=== PATIENT | female | born 1965 | race Caucasian/White ===

== ENCOUNTER 2016-08-30 10:18 | Emergency (ER) | payer MEDICAID ==
[2016-08-30 10:23] VITALS: RESP 18
--- NOTE | 2016-08-30 10:38 | EDPHY ---
H & P Stated Complaint: Bump on R index finger x 22 years;now feels numb x 3 days Time Seen by Provider: 08/30/16 10:28 HPI/ROS: CHIEF COMPLAINT: Finger swelling HISTORY OF PRESENT ILLNESS: The patient is a 51-year-old female who comes to the emergency department complaining of swelling and numbness to the tip of her right index finger. She states that she has had a small cyst there on the flexor tendon for over 20 years but over the last week it has become more painful when she tries to flick her cigarette or play her guitar. Also she has some numbness at the very tip of her finger. No erythema or tenderness. Her primary referred her to a hand surgeon 6 months ago but she states that she has not follow-up. REVIEW OF SYSTEMS: Constitutional: denies: chills, fever, recent illness, recent injury EENTM: denies: blurred vision, double vision, nose congestion Respiratory: denies: cough, shortness of breath Cardiac: denies: chest pain, irregular heart rate, lightheadedness, palpitations Gastrointestinal/Abdominal: denies: abdominal pain, diarrhea, nausea, vomiting, blood streaked stools Genitourinary: denies: dysuria, frequency, hematuria, pain Musculoskeletal: See HPI Skin: denies: lesions, rash, jaundice, bruising Neurological: denies: headache, numbness, paresthesia, tingling, dizziness, weakness Hematologic/Lymphatic: denies: blood clots, easy bleeding, easy bruising Immunologic/allergic: denies: HIV/AIDS, transplant EXAM: GENERAL: Well-appearing, well-nourished and in no acute distress. HEAD: Atraumatic, normocephalic. EYES: Pupils equal round and reactive to light, extraocular movements intact, sclera anicteric, conjunctiva are normal. ENT: TMs normal, nares patent, oropharynx clear without exudates. Moist mucous membranes. NECK: Normal range of motion, supple without lymphadenopathy or JVD. LUNGS: Breath sounds clear to auscultation bilaterally and equal. No wheezes rales or rhonchi. HEART: Regular rate and rhythm without murmurs, rubs or gallops. ABDOMEN: Soft, nontender, normoactive bowel sounds. No guarding, no rebound. No masses appreciated. BACK: No CVA tenderness, no spinal tenderness, step-offs or deformities EXTREMITIES: Mild swelling and tenderness along the flexor tendon just distal to the D IP joint. Not painful to palpate. Normal range of motion and flexion. No trigger finger type movement. No sign of felon type infection or paronychia. No sign of trauma. NEUROLOGICAL: Cranial nerves II through XII grossly intact. Normal speech, normal gait. 5/5 strength, normal movement in all extremities, normal sensation PSYCH: Normal mood, normal affect. SKIN: Warm, dry, normal turgor, no visible rashes or lesions. Source: Patient Exam Limitations: No limitations - Personal History LMP (Females 10-55): Post Menopausal Current Tetanus Diphtheria and Acellular Pertussis (TDAP): Yes Tetanus Vaccine Date: <10 - Medical/Surgical History Hx Asthma: No Hx Chronic Respiratory Disease: No Hx Diabetes: Yes Hx Cardiac Disease: No Hx Renal Disease: Yes Hx Cirrhosis: No Hx Alcoholism: Yes Hx HIV/AIDS: No Hx Splenectomy or Spleen Trauma: No Other PMH: Hep C +, Pancreatitis, CRF, Bipolar, Manic depressive, Multi TBI's. NIddm - Family History Significant Family History: No pertinent family hx - Social History Smoking Status: Current every day smoker Alcohol Use: Sober Drug Use: None Constitutional: Initial Vital Signs Temperature (C) 36.4 C 08/30/16 10:19 Heart Rate 96 08/30/16 10:19 Respiratory Rate 18 08/30/16 10:19 Blood Pressure 100/80 08/30/16 10:19 O2 Sat (%) 98 08/30/16 10:19 O2 Delivery Mode Room Air Allergies/Adverse Reactions: adhesive Allergy (Mild, Verified 08/30/16 10:24) Rash Home Medications: Medication Instructions Recorded Hydroxyzine Pamoate [Vistaril] 50 mg PO 08/30/16 Prazosin HCl [Minipress 1mg (*)] 1 mg PO HS 08/30/16 lamoTRIgine [LamICTAL 100 MG (*)] 200 mg PO 08/30/16 metFORMIN HCL [Glucophage 500 mg 500 mg PO 08/30/16 (*)] Medical Decision Making - Diagnostics Imaging: X-ray: Finger x-ray was obtained. I viewed the images myself on the PACS system. My interpretation of the images is: Negative. The radiologist interpretation is negative. ED Course/Re-evaluation: The patient appears to have a cyst in her tendon that is causing pain. It does not appear infected. There is no mechanism for trauma. I will obtain x-rays to rule out avulsion fracture tuft fracture. We will refer to her to Hand surgery for evaluation and likely repair. She understands and agrees with this plan. 11:40 a.m. we discussed the x-ray results. The patient is relieved. I will have her follow up with Hand surgery. She agrees with this plan. She declines further workup or testing. She will take ibuprofen for pain and declines a prescription. Differential Diagnosis: Partial list of the Differential diagnosis considered include but were not limited to; cyst, trigger finger, felon, paronychia and although unlikely based on the history and physical exam, I also considered crush injury, avulsion fracture, septic joint, arthritis. I discussed these differential diagnoses and the plan with the patient as well as the usual and expected course. The patient understands that the diagnosis is provisional and that in medicine we are not always correct and that further workup is often warranted. Usual and customary warnings were given. All of the patient's questions were answered. The patient was instructed to return to the emergency department should the symptoms at all worsen or return, otherwise to followup with the physician as we discussed. Departure - Departure Disposition: Home, Routine, Self-Care Clinical Impression: Tendon cysts Condition: Fair Instructions: Trigger Finger (ED) Referrals: Reshma Harvey MD [Primary Care Provider] - As per Instructions Jose Boles MD [Medical Doctor] - 2-3 days without fail
--- NOTE | 2016-08-30 10:53 | DX ---
Right Second Finger, Three Views History: Palpable abnormality of second finger for one year. Finger numbness for 2 days. Findings: Soft tissue swelling is seen at the radial margin of the second DIP joint without soft tiss ue calcification. No evidence for adjacent erosion or periarticular erosion or fracture. Severe degen erative change is seen at the first carpometacarpal joint and milder degenerative change at the scaph oid trapezium articulation and first metacarpophalangeal joint. Impression: Soft tissue swelling at radial margin of the second DIP joint without evidence for osseou s erosion or fracture.
[2016-08-30 11:50] VITALS: BP 105/78; PULSE 62; TEMP 98.2; O2SAT 95
== END 2016-08-30 11:49 | disposition home or self-care (01) ==
DX: M67.88 Other specified disorders of synovium and tendon, other site (principal); F17.200 Nicotine dependence, unspecified, uncomplicated; E11.9 Type 2 diabetes mellitus without complications

== ENCOUNTER 2016-12-24 20:40 | Emergency (ER) | payer MEDICAID ==
--- NOTE | 2016-12-24 20:58 | EDPHY ---
H & P Time Seen by Provider: 12/24/16 20:44 HPI/ROS: Chief complaint. Kidney pain HPI. Due to other acute patient's in the emergency department I did not see this patient.Patient was seen by Dr. Cassidy COATES Constitutional. [no fever/chills, no weakness] Eyes. [no problems with vision] ENT. [no sore throat, no nasal drainage] Cardiovascular. [no chest pain] Respiratory. [no shortness of breath, no cough] Abdominal. [no abdominal pain, no nausea/vomiting, no diarrhea] . [no problems urinating] MS. [no calf pain/swelling, no neck/back pain, no joint pain] Skin. [no rash] Lymph. [no swollen glands] Neuro. [no headache, no dizziness, no difficulty walking or with speech] Smoking Status: Current every day smoker Constitutional: Initial Vital Signs Temperature (C) 36.9 C 12/24/16 20:47 Heart Rate 102 H 12/24/16 20:47 Respiratory Rate 18 12/24/16 20:47 Blood Pressure 101/66 12/24/16 20:47 O2 Sat (%) 98 12/24/16 20:47 O2 Delivery Mode Room Air Allergies/Adverse Reactions: adhesive Allergy (Mild, Verified 08/30/16 10:24) Rash Home Medications: Medication Instructions Recorded Hydroxyzine Pamoate [Vistaril] 50 mg PO 08/30/16 Prazosin HCl [Minipress 1mg (*)] 1 mg PO HS 08/30/16 lamoTRIgine [LamICTAL 100 MG (*)] 200 mg PO 08/30/16 metFORMIN HCL [Glucophage 500 mg 500 mg PO 08/30/16 (*)] Medical Decision Making - Data Points Laboratory Results: Laboratory Results 12/24/16 21:21 12/24/16 21:21 12/24/16 12/24/16 12/24/16 22:25 21:21 21:21 WBC RBC Hgb Hct MCV MCH MCHC RDW Plt Count MPV Neut % (Auto) Lymph % (Auto) [place] % (Auto) Eos % (Auto) Baso % (Auto) Nucleat RBC Rel Count Absolute Neuts (auto) Absolute Lymphs (auto) Absolute Monos (auto) Absolute Eos (auto) Absolute Basos (auto) Absolute Nucleated RBC Immature Gran % Immature Gran # Sodium 142 mEq/L mEq/L (134-144) Potassium 4.4 mEq/L mEq/L (3.5-5.2) Chloride 108 mEq/L mEq/L (97-110) Carbon Dioxide 21 mEq/l L mEq/l (22-31) Anion Gap 13 mEq/L mEq/L (8-16) BUN 6 mg/dL L mg/dL (7-23) Creatinine 0.5 mg/dL L mg/dL (0.6-1.0) Estimated GFR > 60 Glucose 171 mg/dL H mg/dL (70-100) Calcium 8.6 mg/dL mg/dL (8.5-10.4) Total Bilirubin 0.4 mg/dL mg/dL (0.1-1.4) Conjugated Bilirubin 0.4 mg/dL mg/dL (0.0-0.5) Unconjugated Bilirubin 0.0 mg/dL mg/dL (0.0-1.1) AST 62 IU/L H IU/L (14-46) ALT 68 IU/L H IU/L (9-52) Alkaline Phosphatase 160 IU/L H IU/L (38-126) Creatine Kinase Total Protein 8.0 g/dL g/dL (6.3-8.2) Albumin 4.1 g/dL g/dL (3.5-5.0) Lipase 110.0 IU/L IU/L (23-300) Beta HCG, Qual NEGATIVE Urine Color YELLOW Urine Appearance HAZY Urine pH 5.0 (5.0-7.5) Ur Specific [place] 1.003 (1.002-1.030) Urine Protein NEGATIVE (NEGATIVE) Urine Ketones NEGATIVE (NEGATIVE) Urine Blood NEGATIVE (NEGATIVE) Urine Nitrate NEGATIVE (NEGATIVE) Urine Bilirubin NEGATIVE (NEGATIVE) Urine Urobilinogen NEGATIVE EU EU (0.2-1.0) Ur Leukocyte Esterase TRACE H (NEGATIVE) Urine RBC 1-3 /hpf /hpf (0-3) Urine WBC 3-5 /hpf H /hpf (0-3) Ur Epithelial Cells 1+ /lpf /lpf (NONE-1+) Urine Bacteria 4+ /hpf H /hpf (NONE SEEN) Urine Mucus TRACE /lpf /lpf (NONE-1+) Urine Glucose 3+ H (NEGATIVE) Ethyl Alcohol 275 mg/dL H mg/dL (0-10) 12/24/16 12/24/16 21:21 21:00 WBC 11.04 10^3/uL H 10^3/uL (3.80-9.50) RBC 4.69 10^6/uL 10^6/uL (4.18-5.33) Hgb 13.3 g/dL g/dL (12.6-16.3) Hct 40.5 % % (38.0-47.0) MCV 86.4 fL fL (81.5-99.8) MCH 28.4 pg pg (27.9-34.1) MCHC 32.8 g/dL g/dL (32.4-36.7) RDW 14.2 % % (11.5-15.2) Plt Count 365 10^3/uL 10^3/uL (150-400) MPV 8.4 fL L fL (8.7-11.7) Neut % (Auto) 52.4 % % (39.3-74.2) Lymph % (Auto) 34.9 % % (15.0-45.0) [place] % (Auto) 9.1 % % (4.5-13.0) Eos % (Auto) 2.1 % % (0.6-7.6) Baso % (Auto) 0.8 % % (0.3-1.7) Nucleat RBC Rel Count 0.0 % % (0.0-0.2) Absolute Neuts (auto) 5.78 10^3/uL 10^3/uL (1.70-6.50) Absolute Lymphs (auto) 3.85 10^3/uL H 10^3/uL (1.00-3.00) Absolute Monos (auto) 1.01 10^3/uL H 10^3/uL (0.30-0.80) Absolute Eos (auto) 0.23 10^3/uL 10^3/uL (0.03-0.40) Absolute Basos (auto) 0.09 10^3/uL 10^3/uL (0.02-0.10) Absolute Nucleated RBC 0.00 10^3/uL 10^3/uL (0-0.01) Immature Gran % 0.7 % % (0.0-1.1) Immature Gran # 0.08 10^3/uL 10^3/uL (0.00-0.10) Sodium Potassium Chloride Carbon Dioxide Anion Gap BUN Creatinine Estimated GFR Glucose Calcium Total Bilirubin Conjugated Bilirubin Unconjugated Bilirubin AST ALT Alkaline Phosphatase Creatine Kinase 63 IU/L IU/L (0-156) Total Protein Albumin Lipase Beta HCG, Qual Urine Color Urine Appearance Urine pH Ur Specific [place] Urine Protein Urine Ketones Urine Blood Urine Nitrate Urine Bilirubin Urine Urobilinogen Ur Leukocyte Esterase Urine RBC Urine WBC Ur Epithelial Cells Urine Bacteria Urine Mucus Urine Glucose Ethyl Alcohol Medications Given: Discontinued Medications Sodium Chloride (Ns) 1,000 mls @ 0 mls/hr IV ONCE ONE PRN Reason: Wide Open Stop: 12/24/16 21:31 Last Admin: 12/24/16 21:30 Dose: 1,000 mls Departure - Departure Condition: Good Referrals: Patient,NotPresent [Unknown] - As per Instructions
[2016-12-24 21:30] LABS: % IMMATURE GRANULYOCYTES 0.7 % (0.0-1.1); ABSOLUTE IMMATURE GRANULOCYTES 0.08 10^3/uL (0.00-0.10); ADD DIFF? NO; ADD MORPH? NO; ADD SCAN? NO; ATYPICAL LYMPHOCYTE FLAG 0 (0-99); FRAGMENT RBC FLAG 0 (0-99); HEMATOCRIT 40.5 % (38.0-47.0); HEMOGLOBIN 13.3 g/dL (12.6-16.3); LEFT SHIFT FLG 20 (0-99); LIPEMIA HEMOLYSIS FLAG 80 (0-99); MEAN CELL HEMOGLOBIN 28.4 pg (27.9-34.1); MEAN CELL HEMOGLOBIN CONCENTR. 32.8 g/dL (32.4-36.7); MEAN CELL VOLUME 86.4 fL (81.5-99.8); MEAN PLATELET VOLUME 8.4 fL (8.7-11.7); PLATELET CLUMPS FLAG 0 (0-99); PLATELET COUNT 365 10^3/uL (150-400); RED BLOOD CELL COUNT 4.69 10^6/uL (4.18-5.33); RED CELL DISTRIBUTION WIDTH 14.2 % (11.5-15.2)
[2016-12-24] MEDS ORDERED: NS 1,000 ML IV ONE (21:30)
[2016-12-24 21:41] LABS: ALANINE AMINOTRANSFERASE 68 IU/L (9-52); ALBUMIN 4.1 g/dL (3.5-5.0); ALKALINE PHOSPHATASE 160 IU/L (38-126); ANION GAP 13 mEq/L (8-16); ASPARTATE AMINOTRANSFERASE 62 IU/L (14-46); BILIRUBIN,TOTAL 0.4 mg/dL (0.1-1.4); BILIRUBIN-CONJUGATED 0.4 mg/dL (0.0-0.5); CALCIUM 8.6 mg/dL (8.5-10.4); CARBON DIOXIDE 21 mEq/l (22-31); CHLORIDE 108 mEq/L (97-110); CREATININE 0.5 mg/dL (0.6-1.0); ETHANOL SERUM 275 mg/dL (0-10); GLOMERULAR FILTRATION RATE > 60; GLUCOSE 171 mg/dL (70-100); POTASSIUM 4.4 mEq/L (3.5-5.2); SODIUM 142 mEq/L (134-144)
--- NOTE | 2016-12-24 22:20 | EDPHY ---
H & P Stated Complaint: Kidney Pain, ETOH Time Seen by Provider: 12/24/16 20:44 HPI/ROS: HPI The patient presents with bilateral flank pain which has been present since yesterday after she brushed her teeth and had an episode of vomiting. She is brought in by ambulance. She describes the pain is dull, constant, worse with standing, moderate in severity. She says she has had similar pain which she thinks comes from her kidneys, however this has lasted longer than usual. She denies any hematuria, dysuria, urgency, hesitancy. She was recently treated for what sounds like a Bartholin's gland cyst. She has been taking Aleve for the pain without much improvement. She was started on insulin 2 weeks ago by her PMD.. REVIEW OF SYSTEMS Constitutional: No fever, no chills. Eyes: No discharge. ENT: No sore throat. Cardiovascular: No chest pain, no palpitations. Respiratory: No cough, no shortness of breath. Gastrointestinal: See HPI Genitourinary: No hematuria. Musculoskeletal: No back pain. Skin: No rashes. Neurological: No headache. PMHx: Diabetes on insulin Soc Hx: Alcohol use PHYSICAL General Appearance: Alert, no distress Eyes: Pupils equal and round no pallor or injection ENT, Mouth: Mucous membranes moist Respiratory: There are no retractions, lungs are clear to auscultation Cardiovascular: Regular rate and rhythm Gastrointestinal: Abdomen is soft and non-tender, no masses, bowel sounds normal Back: No midline tenderness, no flank tenderness Neurological: A&O, moves all extremities Skin: Warm and dry, no rashes Musculoskeletal: Neck is supple non tender Extremities: symmetrical, full range of motion Psychiatric: Patient is oriented X 3, there is no agitation Source: Patient Exam Limitations: No limitations - Personal History LMP (Females 10-55): Unknown Current Tetanus Diphtheria and Acellular Pertussis (TDAP): Yes Tetanus Vaccine Date: <10 - Medical/Surgical History Hx Asthma: No Hx Chronic Respiratory Disease: No Hx Diabetes: Yes Hx Cardiac Disease: No Hx Renal Disease: Yes Hx Cirrhosis: No Hx Alcoholism: Yes Hx HIV/AIDS: No Hx Splenectomy or Spleen Trauma: No Other PMH: Hep C +, Pancreatitis, CRF, Bipolar, Manic depressive, Multi TBI's. NIddm - Social History Smoking Status: Current every day smoker Constitutional: Initial Vital Signs Temperature (C) 36.9 C 12/24/16 20:47 Heart Rate 102 H 12/24/16 20:47 Respiratory Rate 18 12/24/16 20:47 Blood Pressure 101/66 12/24/16 20:47 O2 Sat (%) 98 12/24/16 20:47 O2 Delivery Mode Room Air Allergies/Adverse Reactions: adhesive Allergy (Mild, Verified 08/30/16 10:24) Rash Home Medications: Medication Instructions Recorded Hydroxyzine Pamoate [Vistaril] 50 mg PO 08/30/16 Prazosin HCl [Minipress 1mg (*)] 1 mg PO HS 08/30/16 lamoTRIgine [LamICTAL 100 MG (*)] 200 mg PO 08/30/16 metFORMIN HCL [Glucophage 500 mg 500 mg PO 08/30/16 (*)] levOFLOXACIN [levAQUIN (*)] 750 mg PO DAILY #7 tab 12/24/16 Medical Decision Making Differential Diagnosis: This is a 51-year-old female with chronic alcohol use, history of pancreatitis, diabetes who presents with bilateral flank pain. Differential diagnosis includes pyelonephritis, nephrolithiasis, AAA, musculoskeletal pain. In the emergency room patient was given IV fluids for volume depletion, and her symptoms improved. Labs were checked which did reveal signs of urinary tract infection. I feel she does likely have pyelonephritis. She does not have any vomiting, is not septic appearing, thus I believe is appropriate for outpatient management. I will give her a dose of ceftriaxone here and send her home on Levaquin. I have discussed strict return precautions with her given her comorbid diabetes. - Data Points Laboratory Results: Laboratory Results 12/24/16 21:21 12/24/16 21:21 12/24/16 12/24/16 12/24/16 22:25 21:21 21:21 WBC RBC Hgb Hct MCV MCH MCHC RDW Plt Count MPV Neut % (Auto) Lymph % (Auto) [place] % (Auto) Eos % (Auto) Baso % (Auto) Nucleat RBC Rel Count Absolute Neuts (auto) Absolute Lymphs (auto) Absolute Monos (auto) Absolute Eos (auto) Absolute Basos (auto) Absolute Nucleated RBC Immature Gran % Immature Gran # Sodium 142 mEq/L mEq/L (134-144) Potassium 4.4 mEq/L mEq/L (3.5-5.2) Chloride 108 mEq/L mEq/L (97-110) Carbon Dioxide 21 mEq/l L mEq/l (22-31) Anion Gap 13 mEq/L mEq/L (8-16) BUN 6 mg/dL L mg/dL (7-23) Creatinine 0.5 mg/dL L mg/dL (0.6-1.0) Estimated GFR > 60 Glucose 171 mg/dL H mg/dL (70-100) Calcium 8.6 mg/dL mg/dL (8.5-10.4) Total Bilirubin 0.4 mg/dL mg/dL (0.1-1.4) Conjugated Bilirubin 0.4 mg/dL mg/dL (0.0-0.5) Unconjugated Bilirubin 0.0 mg/dL mg/dL (0.0-1.1) AST 62 IU/L H IU/L (14-46) ALT 68 IU/L H IU/L (9-52) Alkaline Phosphatase 160 IU/L H IU/L (38-126) Creatine Kinase Total Protein 8.0 g/dL g/dL (6.3-8.2) Albumin 4.1 g/dL g/dL (3.5-5.0) Lipase 110.0 IU/L IU/L (23-300) Beta HCG, Qual NEGATIVE Urine Color YELLOW Urine Appearance HAZY Urine pH 5.0 (5.0-7.5) Ur Specific [place] 1.003 (1.002-1.030) Urine Protein NEGATIVE (NEGATIVE) Urine Ketones NEGATIVE (NEGATIVE) Urine Blood NEGATIVE (NEGATIVE) Urine Nitrate NEGATIVE (NEGATIVE) Urine Bilirubin NEGATIVE (NEGATIVE) Urine Urobilinogen NEGATIVE EU EU (0.2-1.0) Ur Leukocyte Esterase TRACE H (NEGATIVE) Urine RBC 1-3 /hpf /hpf (0-3) Urine WBC 3-5 /hpf H /hpf (0-3) Ur Epithelial Cells 1+ /lpf /lpf (NONE-1+) Urine Bacteria 4+ /hpf H /hpf (NONE SEEN) Urine Mucus TRACE /lpf /lpf (NONE-1+) Urine Glucose 3+ H (NEGATIVE) Ethyl Alcohol 275 mg/dL H mg/dL (0-10) 12/24/16 12/24/16 21:21 21:00 WBC 11.04 10^3/uL H 10^3/uL (3.80-9.50) RBC 4.69 10^6/uL 10^6/uL (4.18-5.33) Hgb 13.3 g/dL g/dL (12.6-16.3) Hct 40.5 % % (38.0-47.0) MCV 86.4 fL fL (81.5-99.8) MCH 28.4 pg pg (27.9-34.1) MCHC 32.8 g/dL g/dL (32.4-36.7) RDW 14.2 % % (11.5-15.2) Plt Count 365 10^3/uL 10^3/uL (150-400) MPV 8.4 fL L fL (8.7-11.7) Neut % (Auto) 52.4 % % (39.3-74.2) Lymph % (Auto) 34.9 % % (15.0-45.0) [place] % (Auto) 9.1 % % (4.5-13.0) Eos % (Auto) 2.1 % % (0.6-7.6) Baso % (Auto) 0.8 % % (0.3-1.7) Nucleat RBC Rel Count 0.0 % % (0.0-0.2) Absolute Neuts (auto) 5.78 10^3/uL 10^3/uL (1.70-6.50) Absolute Lymphs (auto) 3.85 10^3/uL H 10^3/uL (1.00-3.00) Absolute Monos (auto) 1.01 10^3/uL H 10^3/uL (0.30-0.80) Absolute Eos (auto) 0.23 10^3/uL 10^3/uL (0.03-0.40) Absolute Basos (auto) 0.09 10^3/uL 10^3/uL (0.02-0.10) Absolute Nucleated RBC 0.00 10^3/uL 10^3/uL (0-0.01) Immature Gran % 0.7 % % (0.0-1.1) Immature Gran # 0.08 10^3/uL 10^3/uL (0.00-0.10) Sodium Potassium Chloride Carbon Dioxide Anion Gap BUN Creatinine Estimated GFR Glucose Calcium Total Bilirubin Conjugated Bilirubin Unconjugated Bilirubin AST ALT Alkaline Phosphatase Creatine Kinase 63 IU/L IU/L (0-156) Total Protein Albumin Lipase Beta HCG, Qual Urine Color Urine Appearance Urine pH Ur Specific [place] Urine Protein Urine Ketones Urine Blood Urine Nitrate Urine Bilirubin Urine Urobilinogen Ur Leukocyte Esterase Urine RBC Urine WBC Ur Epithelial Cells Urine Bacteria Urine Mucus Urine Glucose Ethyl Alcohol Medications Given: Discontinued Medications Sodium Chloride (Ns) 1,000 mls @ 0 mls/hr IV ONCE ONE PRN Reason: Wide Open Stop: 12/24/16 21:31 Last Admin: 12/24/16 21:30 Dose: 1,000 mls Ceftriaxone Sodium/Dextrose (Rocephin 1 Gm (Premix)) 50 mls @ 100 mls/hr IV EDNOW ONE PRN Reason: Protocol Stop: 12/24/16 23:27 Last Admin: 12/24/16 23:01 Dose: 50 mls Departure - Departure Disposition: Home, Routine, Self-Care Clinical Impression: Pyelonephritis, Alcohol intoxication Condition: Good Instructions: Kidney Infection (ED) Additional Instructions: Please take the antibiotics as prescribed. Please avoid hydroxyzine while you are taking it. If you develop any vomiting, fever or feeling worse in any way you must return to the emergency room. Otherwise, please follow-up with Dr. Harvey on Monday. Referrals: Reshma Harvey MD [Primary Care Provider] - As per Instructions Prescriptions: levOFLOXACIN [levAQUIN (*)] 750 mg PO DAILY #7 tab
[2016-12-24 22:34] VITALS: O2SAT 93
[2016-12-24 22:43] LABS: COLOR YELLOW; LEUKOCYTE ESTERASE,URINE TRACE (NEGATIVE); NITRITE,URINE NEGATIVE (NEGATIVE)
[2016-12-24 22:55] LABS: BACTERIA 4+ /hpf (NONE SEEN); MUCUS TRACE /lpf (NONE-1+)
[2016-12-25 00:10] VITALS: BP 129/82; PULSE 101; RESP 18; TEMP 98.2
== END 2016-12-25 00:10 | disposition home or self-care (01) ==
LOC: EDUNIT#
DX: N12 Tubulo-interstitial nephritis, not specified as acute or chronic (principal); F10.129 Alcohol abuse with intoxication, unspecified; E11.9 Type 2 diabetes mellitus without complications; F17.200 Nicotine dependence, unspecified, uncomplicated
CPT/HCPCS: 96365; G0480; J0696

== ENCOUNTER 2017-06-17 12:21 | Emergency (ER) | payer MEDICAID ==
[2017-06-17 12:26] VITALS: BP 115/86; PULSE 102; RESP 18; TEMP 97.5; O2SAT 97
--- NOTE | 2017-06-17 13:25 | EDPHY ---
General Narrative: CHIEF COMPLAINT: Finger cyst HISTORY OF PRESENT ILLNESS: Patient complains of several day history of pain and swelling the right index finger. She describes as a cyst that was smashed and has now swelling. It has become painful. No numbness or tingling. No redness. No fever chills. No difficulty moving the finger other than pain associated with. She reports having a cyst there for years. She was supposed to follow up with hand surgeon for definitive care. She has been diagnosed with ganglion cyst but has not called anyone. No other associated complaints or modifying factors. She has a referral pending to sports medicine that she has not followed up on. ESTABLISHED ORTHOPEDIST: None REVIEW OF SYSTEMS: Ten systems reviewed and are negative unless otherwise noted in the HPI PAST MEDICAL HISTORY: No current medications or diagnoses PAST SURGICAL HISTORY: Tubal ligation, laparotomy for perforated viscus SOCIAL HISTORY: Daily smoker. Frequent alcohol. Occasional marijuana use. FAMILY HISTORY: Noncontributory EXAMINATION General Appearance: Alert, no distress Cardiovascular: Pulses normal throughout. Symmetric radial pulses 2+. Brisk cap refill Neurological: A&O, sensory symmetric, strength symmetric. No wrist drop. Good strength of the interossei the right hand. Skin: Warm and dry, no rash. There is a cystic structure on the right index finger, primarily boulder. This is over the distal phalanx. Consistent with a ganglion cyst with some fluctuance. I do not appreciate any warmth. No drainage. No cellulitis. No evidence of septic joint. Extremities: Tenderness of the right index finger distal phalanx. There is no tenderness of the the IP, PIP or MCP of the right index finger hand. Range of motion is fully intact. Psychiatric: Mood and affect normal DIFFERENTIAL DIAGNOSES: Including but not limited to ganglion cyst, ruptured cyst, abscess, paronychia MDM: 2:25 p.m. Likely ganglion cyst on the distal phalanx of the right index finger. I do not appreciate any evidence of septic joint, cellulitis, tenosynovitis. Full range of motion. No fever. I will obtain an x-ray due to the recent injury. 2:50 p.m. X-ray reveals no evidence of infection or fracture. There is soft tissue swelling. This is consistent with her cystic appearance. Proceed with aspiration of the area. 3:05 p.m. I have administered a digital block. I attempted to aspirate what was initially thought to be a cyst, however I was able to aspirate approximately 10 cc of purulence. This turned out to be an abscess. This is isolated to the distal phalanx and no involvement of the joints. There is no paronychia. No evidence of tenosynovitis or septic joint. She is feeling significantly better after the treatment. I will place her on Bactrim for treatment. Keep the wound covered. Re-evaluation in 48 hours. Follow up with your original hand surgeon referral for definitive care. ED precautions for any worsening symptoms. PROCEDURE: Digital Block Indication: Finger abscess Consent: Verbal Location: Right index finger Anesthesia: Lidocaine 1% plain, 0.25% Marcaine plain, 5mL Description: Base of the finger was prepped. The above was infused without difficulty. Tolerated well. Good anesthesia. Complications: None PROCEDURE: Incision and Drainage Consent: Verbal Location: Right index finger Length: 1 cm Complexity: Simple Anesthesia: Digital block Procedure description: After the area was anesthetize, I used an 18 gauge needle at the highest area of fluctuance. I was able to aspirate 10 mL of purulence. No pulsatile bleeding. Neurovascular intact postprocedure. Tolerated well. Wound dressed in normal sterile fashion. No packing left in place Expressed: 10 mL as of purulent fluid Wound care: Routine as discussed Follow-up: 48 hour wound check. Definitive care with hand surgeon ED Precautions: Worsening pain. Erythema, edema, cyanosis, pallor, paresthesia or anesthesia. - Diagnostics Imaging Results: Imaging Impressions Finger X-Ray 06/17/17 13:25 Impression: 1. Nonspecific soft tissue lesion involving the right second finger distal phalangeal region. 2. No osseous lesion or erosion of the right second finger. 3. Moderate osteoarthritis right first carpometacarpal joint. - History Smoking Status: Current every day smoker - Objective Vital Signs: Initial Vital Signs Temperature (C) 97.5 F 06/17/17 12:22 Heart Rate 102 H 06/17/17 12:22 Respiratory Rate 18 06/17/17 12:22 Blood Pressure 115/86 H 06/17/17 12:22 O2 Sat (%) 97 06/17/17 12:22 O2 Delivery Mode Room Air Allergies/Adverse Reactions: adhesive Allergy (Mild, Verified 06/17/17 12:22) Rash Home Medications: Medication Instructions Recorded Sulfamethox/Tmp 800/160 mg 1 tab PO BID 10 Days tab 06/17/17 [Bactrim Ds] Departure - Departure Disposition: Home, Routine, Self-Care Clinical Impression: Ganglion cyst of finger of right hand, Abscess of finger of right hand Condition: Good Instructions: Ganglion Cysts (ED) Additional Instructions: 1. Keep the wound clean dry and covered 2. Ice and elevate the wound 3. Ibuprofen [id number] as needed every 8 hours 4. Hand surgeon follow-up for definitive care 5. Follow up with primary care physician in 48 hours for wound recheck 6. ED precautions for worsening symptoms, redness, fever, redness of the hand or wrist Referrals: Reshma Harvey MD [Primary Care Provider] - As per Instructions Harry Hill MD [Medical Doctor] - As per Instructions Prescriptions: Sulfamethox/Tmp 800/160 mg [Bactrim Ds] 1 tab PO BID 10 Days tab
== END 2017-06-17 15:22 | disposition home or self-care (01) ==
PROC: 0H9FXZZ Drainage of Right Hand Skin, External Approach (ICD-10-PCS; principal; 2017-06-17)
DX: M67.441 Ganglion, right hand (principal); L02.511 Cutaneous abscess of right hand; F17.200 Nicotine dependence, unspecified, uncomplicated

== ENCOUNTER 2017-10-19 12:07 | Emergency (ER) | payer MEDICAID ==
[2017-10-19 12:15] VITALS: TEMP 97.5
--- NOTE | 2017-10-19 12:32 | EDPHY ---
H & P Smoking Status: Current every day smoker Time Seen by Provider: 10/19/17 12:24 HPI/ROS: CHIEF COMPLAINT: Right index finger pad tenderness HISTORY OF PRESENT ILLNESS: 52-year-old immunocompetent female with prior history of right index finger abscess and felon in the ER complaining of 3 days of similar symptoms, tender. No lymphangitic streaking. No limitations in range of motion. PHYSICAL EXAM (Prior to examination, patient consented to physical exam, hands were washed and my usual and customary physical exam procedures followed) 1) GENERAL: Well-developed, well-nourished, alert and oriented. Appears to be in no acute distress. 2) HEAD: Normocephalic 3) HEENT: sclera anicteric 4) LUNGS: Breathing comfortably. 5) SKIN: Right index finger : Negative kanavel, tenderness to palpation pad finger with a single white lesion on the palmar-lateral aspect.. No paronychia. 6) MUSCULOSKELETAL: Flexor extensor function intact. No pain along the flexor tendon sheath. No fusiform shape. (Carlos Ryan Bri) Constitutional: Initial Vital Signs Temperature (C) 36.4 C 10/19/17 12:12 Heart Rate 96 10/19/17 12:12 Respiratory Rate 18 10/19/17 12:12 Blood Pressure 116/78 10/19/17 12:12 O2 Sat (%) 93 10/19/17 12:12 O2 Delivery Mode Room Air Allergies/Adverse Reactions: adhesive Allergy (Mild, Verified 10/19/17 12:11) Rash Home Medications: Medication Instructions Recorded Cephalexin [Keflex] 500 mg PO TID 10 Days cap 10/19/17 MDM/Departure - MDM Procedures: Procedure: Wound aspiration. . I obtained verbal consent from the patient to drain the abscess who was informed about the possibility of bleeding and pain. 1% plain bupivacaine digital nerve block administered in usual customary fashion achieving anesthesia distally. Area was prepped draped normal sterile fashion. An 18 gauge sterile needle was introduced into the lesion which had come to a head and was a scant amount of purulent discharge. I did not feel comfortable further exploring, deloculating or incising the area at which point the patient started squeezing the area herself and expressed septum like material. Patient requested that I introduce a needle into the joint space which I declined. Areas dressed with sterile dressing by ER staff. (Carlos Ryan) ED Course/Re-evaluation: Doubt infectious tenosynovitis. The patient did have a single lesion which , after digital nerve block, the patient expressed sebum-like material. She requested I introduced needle in the joint space which I declined. I do not think that emergent hand surgery consultation is indicated however I have stressed the importance of hand surgery follow-up and given her this referral information. Starting her on oral Keflex, recommend elevation, given usual and customary finger precautions instructions. She feels comfortable being discharged. Care of patient under supervision of primary Supervising physician Dr Young. (Carlos Ryan) PHYSICIAN DOCUMENTATION: The patient was evaluated and managed by the Physician Water Taxi Operator. My co- signature indicates that I have reviewed this chart and I agree with the findings and plan of care as documented. I am the secondary supervising physician. (Marcelo Young) - Depart Disposition: Home, Routine, Self-Care Clinical Impression: Finger infection Condition: Good Instructions: Cellulitis (ED) Additional Instructions: Return to the ER if you develop redness, swelling, discharge, warmth to the wound, red streaks going up your arm, or any other symptoms that concern you. Prescriptions: Cephalexin [Keflex] 500 mg PO TID 10 Days cap Referrals: Myles Varma MD [Medical Doctor] - 1-2 days without fail
[2017-10-19 13:23] VITALS: BP 98/78; PULSE 102; RESP 20; O2SAT 94
== END 2017-10-19 13:26 | disposition home or self-care (01) ==
PROC: 0H9FXZZ Drainage of Right Hand Skin, External Approach (ICD-10-PCS; principal; 2017-10-19)
DX: L08.9 Local infection of the skin and subcutaneous tissue, unspecified (principal); F17.200 Nicotine dependence, unspecified, uncomplicated

== ENCOUNTER 2017-11-22 11:47 | Emergency (ER) | payer MEDICAID ==
[2017-11-22 12:23] LABS: PLATELET COUNT 252 10^3/uL (150-400)
--- NOTE | 2017-11-22 12:41 | EDPHY ---
General Time Seen by Provider: 11/22/17 12:24 Narrative: CHIEF COMPLAINT: Low sodium, high blood sugar HISTORY OF PRESENT ILLNESS: Possible hyponatremia possible hyperglycemia. The patient has been off all of her diabetic medications since June at her own supervision. Her physician saw her this week and contacted her with reportedly low sodium and high sugar. Her A1c was reportedly greater than 12. Patient states she has no direct complaints from this and has felt no better or worse since stopping her medications in June. She may have some mild urinary complaints over the past few days. No chest pain. No shortness of breath or cough. No abdominal pain. Patient says that she has been off all medications but resumed her Lamictal and Vistaril yesterday because she was feeling anxious. No other associated complaints or modifying factors. REVIEW OF SYSTEMS: Ten systems reviewed and are negative unless otherwise noted in the HPI PCP: Dr. Reshma Harvey SPECIALISTS: None PAST MEDICAL HISTORY: Diabetes mellitus, hep C positive, pancreatitis, agoraphobia, anxiety, bipolar PAST SURGICAL HISTORY: No recent surgeries SOCIAL HISTORY: Smokes cigarettes daily. Drinks 3-5 beers daily. Currently applied for disability FAMILY HISTORY: Noncontributory EXAMINATION General Appearance: Alert, no distress Head: normocephalic, atraumatic Eyes: Pupils equal and round, no conjunctival pallor or injection ENT, Mouth: Mucous membranes moist. Uvula midline. Airway widely patent Neck: Normal inspection, supple, non-tender Respiratory: Lungs are clear to auscultation. No wheeze, rhonchi or crackles Cardiovascular: Regular rate and rhythm. No murmur. Gastrointestinal: Abdomen is soft and nontender Back: non-tender, no bony abnormalities Neurological: GCS 15. A&O, nonfocal, normal gait. No tremor. Patellar reflexes symmetric. No footdrop. Decreased but symmetric sensation of the anterior shins bilaterally. Skin: Warm and dry, no rash. No petechiae or purpura. Extremities: Nontender, no pedal edema. Symmetric range of motion. Psychiatric: Mood and affect normal DIFFERENTIAL DIAGNOSES: Including but not limited to DKA, HHS, hypoglycemia, hyponatremia, pseudohyponatremia, pneumonia, UTI MDM: 12:40 p.m. Reportedly low sodium and high sugar with poorly controlled A1c. The patient has no specific system complaints. Her vital signs are intermittently tachycardic but also within normal limits at times during my examination. Laboratory studies were drawn prior to my examination and are pending. There was no blood sugar drawn. 1:10 p.m. Chemistry reveals a normal sodium level of 137. CBC is mildly elevated leukocytosis. LFTs are elevated but apparently baseline. She also has hepatitis-C. Urinalysis is pending. Chest x-ray is negative for pneumonia. There are chronic changes as noted I have discussed this with her. I have re- evaluated the patient and informed her that I have ordered IV fluid. Her CO2 is minimally low, she is a chronic hyperglycemic. I do not feel she is in and HHS state. There is no evidence of DKA by history or exam and lack of insulin use. I discussed with Dr. Rogers and he agrees with this plan thus far. I will discuss with her primary care physician, who sent her to this facility for evaluation. 1:50 p.m. Urine is positive for glucose but no infection. 2:15 p.m. I discussed the case with SANDRA Jara, at the office of Dr. Harvey. We discussed the patient's earlier laboratory studies this week. She informed me her sodium was 128 on Monday. I updated her on the laboratory studies here which included normal sodium 137, elevated blood glucose of 362. We discussed that I recommended IV fluid and insulin treatment here, as well as resumption of her previous medications. The patient declined anything but the IV fluid. She would like to be discharged home. She is awake alert no acute distress. I do not appreciate DKA or HHS. I did discuss her elevated liver enzymes. She is hep C positive and continues to drink and I discouraged this. I do strongly recommend that she follow up with her primary care physician and she informs that she will do so, and she has a plan for insulin pump placement. We discussed ED precautions and she is comfortable this plan and discharged home. SUPERVISION: Patient was independently examined, but I discussed the case with my secondary supervising physician Dr. Rogers - Diagnostics Imaging Results: Imaging Impressions Chest X-Ray 11/22/17 12:38 Impression: Normal. No pneumonia. - History Smoking Status: Current every day smoker - Objective Vital Signs: Initial Vital Signs Temperature (C) 98.1 F 11/22/17 11:50 Heart Rate 116 H 11/22/17 11:50 Respiratory Rate 20 11/22/17 11:50 Blood Pressure 103/90 H 11/22/17 11:50 O2 Sat (%) 96 11/22/17 11:50 O2 Delivery Mode Room Air Allergies/Adverse Reactions: adhesive Allergy (Mild, Verified 11/22/17 11:49) Rash Home Medications: Medication Instructions Recorded LaMICtal 11/22/17 Vistaril 11/22/17 Laboratory Results: Laboratory Results 11/22/17 12:14 11/22/17 12:14 11/22/17 11/22/17 11/22/17 13:10 12:14 12:14 WBC RBC Hgb Hct MCV MCH MCHC RDW Plt Count MPV Neut % (Auto) Lymph % (Auto) [place] % (Auto) Eos % (Auto) Baso % (Auto) Nucleat RBC Rel Count Absolute Neuts (auto) Absolute Lymphs (auto) Absolute Monos (auto) Absolute Eos (auto) Absolute Basos (auto) Absolute Nucleated RBC Immature Gran % Immature Gran # Sodium 137 mEq/L mEq/L (135-145) Potassium 4.5 mEq/L mEq/L (3.5-5.2) Chloride 101 mEq/L mEq/L (97-110) Carbon Dioxide 20 mEq/l L mEq/l (22-31) Anion Gap 16 mEq/L mEq/L (8-16) BUN 10 mg/dL mg/dL (7-23) Creatinine 0.5 mg/dL L mg/dL (0.6-1.0) Estimated GFR > 60 Glucose 362 mg/dL H mg/dL (70-100) Calcium 8.9 mg/dL mg/dL (8.5-10.4) Total Bilirubin 0.5 mg/dL mg/dL (0.1-1.4) Conjugated Bilirubin 0.4 mg/dL mg/dL (0.0-0.5) Unconjugated Bilirubin 0.1 mg/dL mg/dL (0.0-1.1) AST 190 IU/L H IU/L (14-46) ALT 179 IU/L H IU/L (9-52) Alkaline Phosphatase 164 IU/L H IU/L (38-126) Total Protein 8.1 g/dL g/dL (6.3-8.2) Albumin 4.3 g/dL g/dL (3.5-5.0) Lipase 143 IU/L IU/L (23-300) Beta-Hydroxybutyrate 0.20 mmol/L mmol/L (0.02-0.27) Urine Color YELLOW Urine Appearance CLEAR Urine pH 6.0 (5.0-7.5) Ur Specific [place]ully 1.023 (1.002-1.030) Urine Protein NEGATIVE (NEGATIVE) Urine Ketones NEGATIVE (NEGATIVE) Urine Blood NEGATIVE (NEGATIVE) Urine Nitrate NEGATIVE (NEGATIVE) Urine Bilirubin NEGATIVE (NEGATIVE) Urine Urobilinogen NEGATIVE EU EU (0.2-1.0) Ur Leukocyte Esterase NEGATIVE (NEGATIVE) Urine RBC NONE SEEN /hpf /hpf (0-3) Urine WBC 1-3 /hpf /hpf (0-3) Ur Epithelial Cells TRACE /lpf /lpf (NONE-1+) Urine Glucose 3+ H (NEGATIVE) 11/22/17 12:14 WBC 12.38 10^3/uL H 10^3/uL (3.80-9.50) RBC 4.81 10^6/uL 10^6/uL (4.18-5.33) Hgb 14.9 g/dL g/dL (12.6-16.3) Hct 43.4 % % (38.0-47.0) MCV 90.2 fL fL (81.5-99.8) MCH 31.0 pg pg (27.9-34.1) MCHC 34.3 g/dL g/dL (32.4-36.7) RDW 12.6 % % (11.5-15.2) Plt Count 252 10^3/uL 10^3/uL (150-400) MPV 9.5 fL fL (8.7-11.7) Neut % (Auto) 59.0 % % (39.3-74.2) Lymph % (Auto) 30.6 % % (15.0-45.0) [place] % (Auto) 8.3 % % (4.5-13.0) Eos % (Auto) 1.0 % % (0.6-7.6) Baso % (Auto) 0.7 % % (0.3-1.7) Nucleat RBC Rel Count 0.0 % % (0.0-0.2) Absolute Neuts (auto) 7.30 10^3/uL H 10^3/uL (1.70-6.50) Absolute Lymphs (auto) 3.79 10^3/uL H 10^3/uL (1.00-3.00) Absolute Monos (auto) 1.03 10^3/uL H 10^3/uL (0.30-0.80) Absolute Eos (auto) 0.12 10^3/uL 10^3/uL (0.03-0.40) Absolute Basos (auto) 0.09 10^3/uL 10^3/uL (0.02-0.10) Absolute Nucleated RBC 0.00 10^3/uL 10^3/uL (0-0.01) Immature Gran % 0.4 % % (0.0-1.1) Immature Gran # 0.05 10^3/uL 10^3/uL (0.00-0.10) Sodium Potassium Chloride Carbon Dioxide Anion Gap BUN Creatinine Estimated GFR Glucose Calcium Total Bilirubin Conjugated Bilirubin Unconjugated Bilirubin AST ALT Alkaline Phosphatase Total Protein Albumin Lipase Beta-Hydroxybutyrate Urine Color Urine Appearance Urine pH Ur Specific Gully Urine Protein Urine Ketones Urine Blood Urine Nitrate Urine Bilirubin Urine Urobilinogen Ur Leukocyte Esterase Urine RBC Urine WBC Ur Epithelial Cells Urine Glucose Medications Given: Discontinued Medications Sodium Chloride (Ns) 1,000 mls @ 0 mls/hr IV EDNOW ONE; Wide Open PRN Reason: Protocol Stop: 11/22/17 13:08 Last Admin: 11/22/17 13:12 Dose: 1,000 mls Departure - Departure Disposition: Home, Routine, Self-Care Clinical Impression: Hyperglycemia, Transaminitis Condition: Good Instructions: Diabetic Hyperglycemia (ED) Additional Instructions: 1. Contact your primary care physician for outpatient follow-up 2. We strongly recommend that you resume your insulin and metformin as prescribed by her primary care physician 3. Return to emergency department for any neuro complaints as discussed Referrals: Reshma Harvey MD [Primary Care Provider] - As per Instructions
[2017-11-22] MEDS ORDERED: NS 1,000 ML IV ONE (13:07)
[2017-11-22 14:31] VITALS: BP 96/73
== END 2017-11-22 14:40 | disposition home or self-care (01) ==
DX: E11.65 Type 2 diabetes mellitus with hyperglycemia (principal); R74.0 Nonspecific elevation of levels of transaminase and lactic acid dehydrogenase [LDH]; E86.9 Volume depletion, unspecified; F17.210 Nicotine dependence, cigarettes, uncomplicated

== ENCOUNTER 2018-08-08 15:39 | Observation (INO) | payer MEDICAID ==
--- NOTE | 2018-08-08 15:54 | EDPHY ---
H & P Stated Complaint: [facility] fall, R hip pain Time Seen by Provider: 08/08/18 15:40 HPI/ROS: CHIEF COMPLAINT: Seizure, right hip pain HISTORY OF PRESENT ILLNESS: The patient presents to the ED after a assumed seizure at home which resulted in a fall. The patient is complaining of some right hip pain. The patient denies any acute numbness or weakness. The patient did strike her head but denies any complaints of headache. She is not anti coag abated. She reports she seizure approximately every 2-3 months. The patient reports that she is not interested in taking antiseizure medications. The patient denies any acute abdominal pain. She denies antecedent chest pain or palpitations. REVIEW OF SYSTEMS: A comprehensive 10 point review of systems is otherwise negative aside from elements mentioned in the history of present illness. Source: Patient Exam Limitations: No limitations - Personal History Tetanus Vaccine Date: <10 - Medical/Surgical History Hx Asthma: No Hx Chronic Respiratory Disease: Yes Hx Diabetes: Yes Hx Cardiac Disease: No Hx Renal Disease: Yes Hx Cirrhosis: No Hx Alcoholism: Yes Hx HIV/AIDS: No Hx Splenectomy or Spleen Trauma: No Other PMH: Hep C +, Pancreatitis, CRF, Bipolar, Manic depressive, Multi TBI's, DM 2. NIddm - Social History Smoking Status: Current every day smoker - Physical Exam Exam: General Appearance: Alert, no distress Head: Atraumatic superficial abrasion noted to scalp, no hematoma, no palpable crepitus Eyes: Pupils equal, round, reactive ENT, Mouth: No hemotympanum, no oral trauma Neck: Nontender, trachea midline Respiratory: No chest wall tender, no subcutaneous air, lungs clear bilaterally Cardiovascular: Regular rate and rhythm Abdomen: Abdomen is soft and nontender, tenderness to palpation over the right hip Skin: No lacerations, No abrasion Back: No midline T/L/S pain Extremities: Tenderness to palpation over right hip, decreased range of motion right hip secondary to pain Neurological: A&Ox3, normal motor function, normal sensory exam Constitutional: Initial Vital Signs Temperature (C) 36.8 C 08/08/18 15:41 Heart Rate 98 08/08/18 15:41 Respiratory Rate 18 08/08/18 15:41 Blood Pressure 136/90 H 08/08/18 15:41 O2 Sat (%) 95 08/08/18 15:41 O2 Delivery Mode Room Air Allergies/Adverse Reactions: adhesive Allergy (Mild, Verified 08/08/18 17:32) Rash Home Medications: Medication Instructions Recorded Aspirin EC [Aspirin EC 81 mg (*)] 81 mg PO HS 08/08/18 Hydroxyzine Pamoate [Vistaril] 50 mg PO TID PRN 08/08/18 [place] Carbonate [[place] 600 mg PO HS 08/08/18 Carbonate Tab 300 mg (*)] lamoTRIgine [LamICTAL 100 MG (*)] 200 mg PO HS 08/08/18 metFORMIN HCL [Metformin HCl ER] 1,000 mg PO DAILY PRN 08/08/18 Medical Decision Making - Diagnostics Imaging Results: Imaging Impressions Hip X-Ray 08/08/18 15:50 Impression: Obliquely oriented intertrochanteric proximal right femoral fracture , with slight superior displacement of the greater trochanteric fracture fragment. The fracture may be incomplete, as the medial cortex and lesser trochanter appear to remain intact. As clinically directed, noncontrast CT examination may be of benefit in further evaluation of the extent of fracture. Chest X-Ray 08/08/18 16:33 Impression: 1. No evidence for acute cardiopulmonary abnormality. 2. Questionable subcentimeter pulmonary nodule in the right upper lobe. Consider follow-up chest x-ray in one month. Extremity CT 08/08/18 16:44 Impression: Mildly displaced right greater trochanteric fracture, as above. Results called and discussed with Dr. Marcelo Young on 08/08/2018, 17:57. ED Course/Re-evaluation: The patient presents to the ED after mechanical fall which resulted in right hip pain. The patient has follow occurred at 3:00 a.m. In the morning. She has been unable to ambulate since that time. The patient presents to the ED with complains only of acute right hip pain. She denies any headache. She did sustain a superficial contusion to her forehead. She is not anticoagulated. X-rays of the right hip demonstrate a minimally displaced partial right intertrochanteric femur fracture. The patient had an IV established. Consultation with Dr. Jose Luke from Orthopedic surgery with occurred at 5:00 p.m.. In reviewing the patient's plain film I was somewhat concerned about the possibility of an artifact. I did obtain a CT scan of the extremity which demonstrates a fracture only through the greater trochanter and not through the intertrochanteric process. The patient was seen in consultation by Orthopedic surgery she has a non operative fracture. She will require PT and OT. The patient will continue to be admitted by the hospitalist service this evening. Differential Diagnosis: Differential diagnosis considered includes hip fracture, hip dislocation, pelvic fracture, myofascial strain, pelvic hematoma - Data Points Laboratory Results: Laboratory Results 08/08/18 16:40 08/08/18 16:40 08/08/18 08/08/18 08/08/18 16:40 16:40 16:40 WBC 6.85 10^3/uL 10^3/uL (3.80-9.50) RBC 3.82 10^6/uL L 10^6/uL (4.18-5.33) Hgb 12.1 g/dL L g/dL (12.6-16.3) Hct 35.1 % L % (38.0-47.0) MCV 91.9 fL fL (81.5-99.8) MCH 31.7 pg pg (27.9-34.1) MCHC 34.5 g/dL g/dL (32.4-36.7) RDW 12.4 % % (11.5-15.2) Plt Count 121 10^3/uL L 10^3/uL (150-400) MPV 10.5 fL fL (8.7-11.7) Neut % (Auto) 66.7 % % (39.3-74.2) Lymph % (Auto) 22.0 % % (15.0-45.0) [place] % (Auto) 9.8 % % (4.5-13.0) Eos % (Auto) 0.6 % % (0.6-7.6) Baso % (Auto) 0.6 % % (0.3-1.7) Nucleat RBC Rel Count 0.0 % % (0.0-0.2) Absolute Neuts (auto) 4.57 10^3/uL 10^3/uL (1.70-6.50) Absolute Lymphs (auto) 1.51 10^3/uL 10^3/uL (1.00-3.00) Absolute Monos (auto) 0.67 10^3/uL 10^3/uL (0.30-0.80) Absolute Eos (auto) 0.04 10^3/uL 10^3/uL (0.03-0.40) Absolute Basos (auto) 0.04 10^3/uL 10^3/uL (0.02-0.10) Absolute Nucleated RBC 0.00 10^3/uL 10^3/uL (0-0.01) Immature Gran % 0.3 % % (0.0-1.1) Immature Gran # 0.02 10^3/uL 10^3/uL (0.00-0.10) PT 12.9 SEC SEC (12.0-15.0) INR 0.95 (0.83-1.16) APTT 29.2 SEC SEC (23.0-38.0) Sodium REJ Potassium REJ Chloride REJ Carbon Dioxide REJ Anion Gap REJ BUN REJ Creatinine REJ Estimated GFR REJ Glucose REJ Calcium REJ Specimen Hemolysis TNP Medications Given: Hydromorphone HCl (Dilaudid) 0.2 - 0.4 mg IVP Q4HRS PRN PRN Reason: Pain, Severe Unable to Take PO Stop: 08/18/18 18:06 Last Admin: 08/08/18 18:29 Dose: 0.4 mg Departure - Departure Disposition: [facility] Inpatient Acute Clinical Impression: Seizure, Greater trochanter fracture Condition: Good
[2018-08-08 17:10] LABS: PLATELET COUNT 121 10^3/uL (150-400)
[2018-08-08 17:17] LABS: INR 0.95 (0.83-1.16); PROTIME(PATIENT) 12.9 SEC (12.0-15.0)
[2018-08-08] MEDS ORDERED: ONDANSETRON DISINTEGRATING 4 MG TAB PO PRN (18:07)
[2018-08-08] MEDS ORDERED: ONDANSETRON 4 MG/2 ML VIAL IVP PRN (18:07)
[2018-08-08] MEDS ORDERED: LORazepam 2 MG/ML INJ IVP PRN (18:13)
[2018-08-08] MEDS ORDERED: FLUMAZENIL 0.5 MG/5 ML MDV IVP PRN (18:13)
[2018-08-08] MEDS ORDERED: D50W 25 GM/50 ML SYR IVP PRN (18:27)
[2018-08-08] MEDS: HYDROmorphONE/DILAUDID 1 MG/ML INJ IVP PRN ×2 (18:29→22:10)
--- NOTE | 2018-08-08 18:33 | PDCONSULT ---
Smalltalk Developer Note: ORTHOPEDIC SURGERY CONSULT NOTE ASSESSMENT: Right Greater Trochanter Fracture, Displace PLAN: She was admitted to hospitalist service for seizure disorder. PT/OT would be beneficial tomorrow Toe Touch Weight Bearing with use of a walker, No active abduction movements. Non-Surgical Treatment at this point in time. We will have patient follow-up in 14 days at our clinic. Discharge: Per hospitalist Please have patient call [facility] to set up follow-up appointment. We appreciate this consult, and if there are any further issues or concerns, please call us. SUBJECTIVE: ROS: 10 point review of symptoms shows no significant issues except seizure disorder. Patient presented to [facility] ER after having a siezure and falling onto right hip. X -rays and CT taken confirm Greater Troch fracture. Pain has been well controlled. She has a history of Seizure disorder. Denies severe pain, CP, SOB, N/V OBJECTIVE: Physical exam RLE Tenderness over greater troch region. No open wounds or swelling. Full knee ROM , and ankle ROM. Distal neurovasculature intact Gustavo CHAVEZ for Dr. Jose Luke (Orthopedic Surgery)
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
[2018-08-08] MEDS ORDERED: METFORMIN HCL 1000 MG PO PRN (19:50)
[2018-08-08] MEDS: THIAMINE HCL 500 MG in NS 100 ML IV SCH (21:04)
[2018-08-08] MEDS: ASPIRIN EC 81 MG TAB PO SCH (21:05)
[2018-08-08] MEDS: lamoTRIgine 100 MG TAB PO SCH (21:05)
[2018-08-08] MEDS: oxyCODONE IR 5 MG TAB PO PRN (21:36)
--- NOTE | 2018-08-08 22:15 | HOSPPROG ---
Hospitalist Progress Note Assessment/Plan: 53 yo F with hx of bipolar d/o as well as seizure do and heavy alcohol use presenting s/p seizure with right intertrochanteric hip fx # right intertrochanteric hip fx: this is felt to be non operative per ortho, she will be TDWB for now and will f/u with ortho as an OP, pain control as needed # seizure d/o: somewhat strange hx--patient was previously on dilantin but self d/c'ed per her report and notes that she has seizure about every other month, previously every 2 weeks. Possibly related to alcohol though she denies that. Will ask neuro to evaluate while in house for further assessment. # alcohol use disorder: patient with hx of heavy etoh use but states she has never had withdrawal and no s/s of withdrawal currently. Started on ciwa in case this develops overnight but would dc in am if no withdrawal noted # fall/headache: patient fell with her seizure with injury noted to the head, given hx of alcoholism ct head performed without e/o bleed, headache is chronic per patient # DM: continue metformin and SSI as needed # bipolar d/o: continue lithium # ? RUL nodule: repeat cxr in one month # observation status for now Patient new to my care. Old records reviewed and summarized as above. Care plan reviewed with ER doctor and KINZA Avery as above. Objective: Vital Signs Temp Pulse Resp BP Pulse Ox 36.4 C 67 16 146/80 H 99 08/08/18 19:40 08/08/18 19:40 08/08/18 19:40 08/08/18 19:40 08/08/18 19:40 Laboratory Results 08/08/18 17:40 PT 12.9 SEC (12.0-15.0) 08/08/18 16:40 INR 0.95 (0.83-1.16) 08/08/18 16:40 ICD10 Worksheet Patient Problems: Problems Problem Status Onset Seizure Acute Greater trochanter fracture Acute
[2018-08-09] MEDS: oxyCODONE IR 5 MG TAB PO PRN ×6 (04:38→23:46)
[2018-08-09 05:19] LABS: PLATELET COUNT 178 10^3/uL (150-400)
[2018-08-09] MEDS ORDERED: metFORMIN SR 500 MG TAB PO PRN (08:00)
[2018-08-09] MEDS: FOLIC ACID 1 MG TAB PO SCH (08:30)
[2018-08-09] MEDS: MULTIVITAMINS 1 EACH TAB PO SCH (08:30)
[2018-08-09] MEDS: INSULIN LISPRO 100 UNIT/ML SC SCH ×3 (08:30→17:49)
[2018-08-09] MEDS: THIAMINE HCL 500 MG in NS 100 ML IV SCH (08:39)
[2018-08-09] MEDS: ACETAMINOPHEN 325 MG TAB PO PRN ×3 (08:40→20:46)
--- NOTE | 2018-08-09 15:34 | HOSPPROG ---
Hospitalist Progress Note Assessment/Plan: 53y female with mechanical fall. First encounter, chart reviewed. D/W RN. 1. Right femoral fracture -per ortho, no surgery required. -Recommend TDWB status and to f/u with them as outpatient -PT/OT -Pain control PO/IVP PRN 2. Seizures -Seizures precautions -Neurology to consult -Pt refusing medications -Prior history demonstrates her stopping all her medications because she feels like she does better without them. 3. Bipolar- - non-compliant with her medications - She recently saw her psychiatrist and was placed on [place] -cont meds 4. Diabetes - renal function is normal. - May resume metformin. -No insulin sliding scale. 5. Alcohol withdrawal - does not appear to have s/s 6. AST/ALT/Alk phos -better today - Hyponatremic 132. - d/t alcohol intake. -CIWA scale -Ativan PRN -Thiamine bolus dose + thiamine PO -Folic acid 6. CXR - she does not report SOB or chest pain - However, x-ray reveals a questionable upper lobe nodule - recommended for the pt to have a repeat CXR in one month. Diet: Regular VTE ppx: SCDs Code: Full Dispo: Admit to obs unclear, pt refusing further resources offered SNF or HHC PT rec SNF Subjective: Wants to go home. Refusing SNF or HHC. Pain ok. Objective: Vital Signs Temp Pulse Resp BP Pulse Ox 36.8 C 75 16 120/76 96 08/09/18 11:35 08/09/18 11:35 08/09/18 11:35 08/09/18 11:35 08/09/18 11:35 Laboratory Results 08/09/18 04:43 08/09/18 04:43 08/08/18 08/09/18 08/10/18 05:59 05:59 05:59 Intake Total 750 Output Total 850 650 Balance -100 -650 PT 12.9 SEC (12.0-15.0) 08/08/18 16:40 INR 0.95 (0.83-1.16) 08/08/18 16:40 - Physical Exam Constitutional: no apparent distress, appears nourished, chronically ill appearing Eyes: PERRL, anicteric sclera, EOMI Ears, Nose, Mouth, Throat: moist mucous membranes, hearing normal, ears appear normal, poor dentition Cardiovascular: No JVD, No tachycardia, No edema Respiratory: no respiratory distress, no rales or rhonchi, reduced air movement Gastrointestinal: normoactive bowel sounds, No tenderness, No ascites Skin: warm, normal color, No mottled Musculoskeletal: pain with ROM, muscular tenderness, abnormal gait, generalized weakness Neurologic: AAOx3 Psychiatric: not anxious, not encephalopathic, poor insight, poor judgement ICD10 Worksheet Patient Problems: Problems Problem Status Onset Seizure Acute Greater trochanter fracture Acute
[2018-08-09] MEDS ORDERED: hydrOXYzine HCL 50 MG TAB PO PRN (16:00)
--- NOTE | 2018-08-09 16:31 | ASMTCMCOM ---
CM Note CM Note Notes: Patient was discharged early today; however, PT did not think she was safe enough to return home. I spoke to patient with [facility], and she agreed to work more with PT and then discharge with home care. She had been attempting to get a wheelchair and front wheel walker from a loan closet, but she doesn't have any way to transport them to hospital. I located both the walker and wheelchair in our donation closet in the CM office. We will deliver to her before she works w PT tomorrow. She will take a cab home where her niece will be available to help her. PT order sent to [facility] who accepts. Case Management will follow. Current d/c plan: home w DME and [facility] Date Signed: 08/09/2018 04:31 PM Electronically Signed By:Jeannette Robison RN
[2018-08-09] MEDS: ASPIRIN EC 81 MG TAB PO SCH (20:31)
[2018-08-09] MEDS: lamoTRIgine 100 MG TAB PO SCH (20:31)
[2018-08-09] MEDS ORDERED: LITHIUM CARBONATE 300 MG TAB PO SCH (21:00)
--- NOTE | 2018-08-09 21:01 | GDS ---
DISCHARGE DIAGNOSES: 1. Mechanical fall. 2. Right femoral fracture. 3. Seizure. 4. Bipolar disorder. 5. Diabetes. 6. Alcohol withdrawal. 7. Possible upper lobe nodule on chest x-ray. CONSULTATIONS: Orthopedics. STUDIES AND PROCEDURES DONE: 1. Hip x-ray. 2. CT of the extremity. 3. Head CT. PHYSICAL EXAM: GENERAL: The patient is alert. VITAL SIGNS: Afebrile at 36.8, pulse 75, respirator y rate 16, blood pressure is 120/76. She is saturating 96% on room air. I have seen and evaluated eugene hall patient on the day of discharge. HOSPITAL COURSE: The patient is a 53-year-old female who presents to the emergency room after suffer ing a mechanical fall. She was evaluated and diagnosed with: 1. Right femoral fracture. During this hospitalization, she received an orthopedic consultation. F racture is nonsurgical. The patient is toe-touch weightbearing and can follow in the outpatient sett ing with Orthopedics. She has been seen by Physical Therapy and Occupational Therapy. Please refer to notes for further details. 2. History of seizure disorder. The patient is refusing medications at this time. She states she h as discontinued her seizure medications independently. A neurology consult has been ordered; however , the patient is refusing. 3. Bipolar disorder. Again, the patient is noncompliant with her medications. [facility] with. She is not suicidal or homicidal and is stable at this time. 4. Diabetes. Renal function is normal. Her metformin has been continued. 5. History of alcohol withdrawal. Patient is not currently having any signs of withdrawal. She has been placed on CIWA with vitamin replacement and has received proper education. 6. Possible upper lobe nodule. The patient did receive a chest x-ray during this hospitalization th at demonstrates a questionable right upper lobe nodule. I educated the patient and instructed her to follow up with a repeat chest x-ray in 1 month. DISPOSITION: custodial has been recommended for the patient at time of disposition; however, dyan hall is refusing that. I have also offered her home health care at the time of disposition, and she co ntinues to refuse that as well. She wishes to go home independently with no assistance. I, again, joe joseph expressed to her that this is not in her best interest, and she wishes to take these risks and un derstands the potential complications. DISCHARGE MEDICATIONS: Please refer to EMR form. FOLLOWUP: With Dr. Luke in 2 weeks as well as the patient's psychiatrist and primary care physician . I spent greater than 35 minutes in the care, coordination, and management of this patient's dispositi on. /[id number]/MODL
[2018-08-10] MEDS: ACETAMINOPHEN 325 MG TAB PO PRN (07:49)
[2018-08-10] MEDS: FOLIC ACID 1 MG TAB PO SCH (07:50)
[2018-08-10] MEDS: MULTIVITAMINS 1 EACH TAB PO SCH (07:50)
[2018-08-10] MEDS: oxyCODONE IR 5 MG TAB PO PRN ×2 (07:50→12:55)
[2018-08-10] MEDS: THIAMINE HCL 500 MG in NS 100 ML IV SCH ×2 (07:50→09:36)
[2018-08-10] MEDS: INSULIN LISPRO 100 UNIT/ML SC SCH ×2 (07:59→12:51)
--- NOTE | 2018-08-10 08:32 | PDIAF ---
- Diagnosis Diagnosis: femur fracture Code Status: Full Code - Medication Management Discharge Medications: electronically signed and located in the Home Medication List. PICC Care - Routine: N/A - Orders Services needed: Home Care, Physical Therapy Home Care Face to Face: I certify that this patient was under my care and that I had the required [id number] encounter meeting the encounter requirements on the discharge day. My findings support the fact that the patient is homebound as defined in Home Care Face to Face Continued: CMS Chapter 7 Medicare Benefits Manual 30.1.1 , The condition of the patient is such that there exists a normal inability to leave home and consequently, leaving home would require a considerable and taxing effort. Diet Recommendation: no restrictions on diet Additional Instructions: follow up with Dr. Luke in two weeks per his instructions. TTWB until you follow up with MD. - Follow Up Care Current Providers and Referrals: Patient,NotPresent [Unknown] - As per Instructions
[2018-08-10] MEDS ORDERED: THIAMINE HCL 100 MG TAB PO SCH (09:45)
[2018-08-10 15:56] VITALS: BP 146/95
--- NOTE | 2018-08-10 16:13 | ASMTLACE ---
KAL Length of stay for Answers: 3 days current admission Acuity / Level of Answers: Yes Care: Did the patient have an inpatient admission? Comorbidities - select Answers: Diabetes (uncontrolled or all that apply controlled) Other Notes: Hep C; Hx of seizures # of Emergency department Answers: 1-2 visits in the last 6 months Social determinants Answers: History of substance abuse (ETOH, street drugs, prescription drugs, etc.) Mental health diagnosis (anxiety, depression, pers onality disorders, etc.) Score: 15 Date Signed: 08/10/2018 04:13 PM Electronically Signed By:CLAUDIA Mcclure
--- NOTE | 2018-08-10 16:16 | ASMTCMCOM ---
CM Note CM Note Notes: Pt medically stable for [facility] Orders for HC to be obtained via [facility]. WC and walker provided to pt. Pt provided [place] information to scheduled follow up with Dr. Luke. Melba sanders [facility] emailed referral. Transport home arranged with [facility] for Medicaid wc for [id number]. Pt meds to be filled at [facility]. Date Signed: 08/10/2018 04:16 PM Electronically Signed By:CLAUDIA Mcclure
[2018-08-11] MEDS ORDERED: THIAMINE HCL 100 MG TAB PO SCH (09:00)
== END 2018-08-10 17:40 | disposition home health service (06) ==
LOC: EDUNIT# → INTOOBSV 17:12 → F3N 18:35
PROVIDERS: ADMIT Internal Medicine; ATTEND Internal Medicine
DX: S72.141A Displaced intertrochanteric fracture of right femur, initial encounter for closed fracture (principal); S00.83XA Contusion of other part of head, initial encounter; W19.XXXA Unspecified fall, initial encounter; Y92.019 Unspecified place in single-family (private) house as the place of occurrence of the external cause; G40.909 Epilepsy, unspecified, not intractable, without status epilepticus; R91.8 Other nonspecific abnormal finding of lung field; E87.1 Hypo-osmolality and hyponatremia; F10.20 Alcohol dependence, uncomplicated; Z91.14 Patient's other noncompliance with medication regimen; F31.9 Bipolar disorder, unspecified; E11.9 Type 2 diabetes mellitus without complications; N18.9 Chronic kidney disease, unspecified; Z87.820 Personal history of traumatic brain injury; F17.200 Nicotine dependence, unspecified, uncomplicated; Z79.84 Long term (current) use of oral hypoglycemic drugs
CPT/HCPCS: 70450; 71045; 73502; 73700; 96372; 96374; 96376; 97116; 97161; 99285; G0378; J1170; J1815; J3411